=== PATIENT | male | born 1950 | race Caucasian/White ===

== ENCOUNTER 2018-08-07 10:41 | Emergency (ER) | payer MEDICARE, OTHER ==
[~2018-08-07] VITALS: Ht 180.3 cm; Wt 65.9 kg
[2018-08-07 11:24] LABS: BASOPHILS % (AUTO) 0.5 % (0-1); EOSINOPHILS # (AUTO) 0.1 X10'3 (0-0.9); EOSINOPHILS % (AUTO) 1.3 % (0-6); HEMOGLOBIN 16.4 g/dl (14.0-17.9); LYMPHOCYTES # (AUTO) 1.4 X10'3 (1.1-4.8); LYMPHOCYTES % (AUTO) 23.8 % (21-51); MEAN CORPUSCULAR HEMOGLOBIN 30.1 PG (27.0-31.0); MEAN CORPUSCULAR HGB CONC 33.4 % (33.0-36.5); MEAN CORPUSCULAR VOLUME 90.2 FL (78-98); MEAN PLATELET VOLUME 7.3 FL (7.4-10.4); MONOCYTES # (AUTO) 0.8 X10'3 (0-0.9); MONOCYTES % (AUTO) 13.5 % (2-12); NEUTROPHILS # (AUTO) 3.7 X10'3 (1.8-7.7); NEUTROPHILS % (AUTO) 60.9 % (42-75); PLATELET COUNT 268 X10'3 (140-440); RED BLOOD COUNT 5.44 X10'6 (4.70-6.10); RED CELL DISTRIBUTION WIDTH 13.6 % (11.5-14.5); WHITE BLOOD COUNT 6.1 X10'3 (4.5-11.0)
[2018-08-07 11:39] LABS: ALANINE AMINOTRANSFERASE 23 U/L (12-78); ALBUMIN 3.7 G/DL (3.4-5.0); ALKALINE PHOSPHATASE 84 IU/L (46-116); ANION GAP 12 (8-16); ASPARTATE AMINO TRANSFERASE 18 U/L (10-37); BILIRUBIN,TOTAL 0.3 MG/DL (0.1-1.0); BLOOD UREA NITROGEN 15 MG/DL (7-18); BUN/CREATININE RATIO 15.2 (5.4-32.0); CALCIUM 8.8 MG/DL (8.5-10.1); CHLORIDE 96 MMOL/L (99-107); CREATININE 0.99 MG/DL (0.60-1.10); GLUCOSE 107 MG/DL (70-104); POTASSIUM 4.1 MMOL/L (3.5-5.1); SODIUM 133 MMOL/L (135-145); TOTAL CARBON DIOXIDE 25.4 MMOL/L (24-32); TOTAL PROTEIN 7.4 G/DL (6.4-8.2); eGFR 75 ML/MIN
[2018-08-07 11:41] LABS: PARTIAL THROMBOPLASTIN TIME 30 SECONDS (22-32); PROTHROMBIN TIME 10.2 SECONDS (9.0-12.0)
[2018-08-07] MEDS ORDERED: normal saline 1000ML IV soln IVB ONE (13:00)
[2018-08-07 14:23] LABS: CLARITY,URINE CLEAR (Clear); COLOR,URINE YELLOW (Yellow); GLUCOSE, URINE NEGATIVE (Neg); KETONES,URINE TRACE mg/dl (Neg); LEUKOCYTE ESTERASE ,URINE SMALL (Neg); NITRITES, URINE NEGATIVE (Neg); OCCULT BLOOD,URINE NEGATIVE (Neg); PROTEIN,URINE NEGATIVE (Neg); UROBILINOGEN,URINE 0.2 E.U/dL (0.2-1.0)
[2018-08-07 14:26] LABS: UA COLLECTION TYPE CLN CATCH MIDSTREAM
[2018-08-07 14:30] LABS: BACTERIA,URINE FEW /HPF (Neg); SQUAMOUS EPITHELIAL CELL,UR FEW /LPF (FEW)
[2018-08-07 14:31] LABS: RBC,URINE 0-2 /HPF (0-2); WBC,URINE 0-4 /HPF (0-4)
[2018-08-07 15:16] VITALS: BP 133/74
== END 2018-08-07 15:17 | disposition home or self-care (01) ==
LOC: ER 10:42
DX: R55 Syncope and collapse (principal); R63.0 Anorexia; R61 Generalized hyperhidrosis; Z87.19 Personal history of other diseases of the digestive system
CPT/HCPCS: 36415; 71045; 80053; 81001; 82948; 84484; 85025; 85610; 85730; 87088; 93005; 99284; J7030

== ENCOUNTER 2025-06-10 16:14 | Emergency (ER) | payer MEDICARE, OTHER ==
[~2025-06-10] VITALS: Ht 180.3 cm; Wt 70.6 kg
[2025-06-10 16:31] VITALS: BP 140/89; PULSE 82; TEMP 97.8; O2SAT 95
--- NOTE | 2025-06-10 16:34 | ELECTROCARDIOGRAPH REPORT ---
[facility] Test Date: 2025-06-10 Test Time: 16:33:04 Pat Name: CRUZ EMANUEL Department: EMERGENCY ROOM Room: Gender: M Senior Technical Specialist: : [id number] Requested By: KATERINA ALEMAN Order Number: [id number] Reading MD: Dr. Manuel Goodwin Measurements Intervals [place] Rate: 78 P: 72 [place]: 155 QRS: 102 QRSD: 111 T: 58 QT: 404 QTc: 461 Interpretive Statements Sinus rhythm Right axis deviation Electronically Signed On 06-12-2025 21:43:[address] Manuel Goodwin Please click the below link to view image of tracing.
[2025-06-10 17:06] LABS: MEAN PLATELET VOLUME 6.8 FL (7.4-10.4); RED CELL DISTRIBUTION WIDTH 14.1 % (11.5-14.5)
--- NOTE | 2025-06-10 17:21 | RADIOLOGY REPORT ---
CHEST RADIOGRAPH Indication: CP Technique: DI CHEST,SINGLE VIEW Comparison: None FINDINGS: 1 The cardiac silhouette is unremarkable. The lungs demonstrate bilateral interstitial airspace opacities. The pulmonary vasculature is unremarkable. There is no pleural effusion. There is no pneumothorax. IMPRESSION: Interstitial airspace opacities which could represent sequela of pulmonary edema, atypical infection, chronic lung changes/disease.
[2025-06-10 17:27] LABS: CREATININE 0.71 MG/DL (0.60-1.10); PRO BRAIN NATRIURETIC PEPTIDE 90 PG/ML (0-450); TOTAL CARBON DIOXIDE 27.2 MMOL/L (24-32); eCRCL 90 ML/MIN; eGFR > 90 ML/MIN
[2025-06-10 18:09] LABS: LEUKOCYTE ESTERASE ,URINE NEGATIVE (Neg); NITRITES, URINE NEGATIVE (Neg); OCCULT BLOOD,URINE NEGATIVE (Neg)
[2025-06-10 18:10] LABS: UA COLLECTION TYPE NON-SPECIFIED
--- NOTE | 2025-06-10 18:52 | RADIOLOGY REPORT ---
CT CT HEAD Indication: syncope EXAM DATE: 06/10/2025 06:15 PM COMPARISON: None TECHNIQUE: CT of the head without intravenous contrast. RADIATION DOSE: CTDIvol: 54 mGy, DLP: 1152 mGy*cm FINDINGS: There is no intracranial hemorrhage. There is no extra-axial fluid, mass, mass effect or midline shift. The ventricles are midline and normal in size. Basilar cisterns are patent. There are mild periventricular and subcortical white matter chronic microvascular ischemic changes. The mastoids are well pneumatized. There is mild mucosal thickening of the bilateral maxillary sinuses. 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 Imaged portion of the orbits are unremarkable. IMPRESSION: No intracranial hemorrhage or mass effect. Mild chronic microvascular ischemic changes.
--- NOTE | 2025-06-10 19:05 | Physician Documentation ---
History of Present Illness ~ Chief Complaint: Dizziness Stated Complaint: WEAKNESS Time Seen by MD: 16:53 Primary Medical Doctor: [facility] 74-year-old male presents to the ED with a complaint of 2-3 days of intermittent dizziness. Denies any exacerbating or alleviating factors. Denies any shortness of breath short chest pain. Denies any urinary frequency. Denies any recent head trauma.. Denies any cardiac history. Day of Onset: Jun 10, 2025 Medication Reconciliation Allergies: Coded Allergies: No Known Allergies (Unverified , 09/03/10) Past Medical History Past Medical History: Hernia Past Surgical History: noncontributory Alcohol Use: None Lives In: Home Review of Systems All Other Systems at this time: Reviewed and Negative ROS As stated above in the [facility], otherwise all systems are reviewed and negative. Physical Exam Vital Signs: Temperature: 97.8, Source: Oral, Heart Rate: 82, Respiratory Rate: 16, BP: 140/89, Pulse Oximetry: 95, Weight: 70.600 Oxygen Flow Rate: 0 Physical Exam General: Alert, no apparent distress. HEENT: PERRL, EOMI, no injection, moist mucous membranes. Neck: Full range of motion. Respiratory: Lungs clear, no respiratory distress. Chest: No accessory muscle use. Cardiovascular: Regular rate and rhythm, no murmurs. Gastrointestinal: Soft, nontender, nondistended. Bowels sounds present. Extremities: Normal range of motion, no deformity. Neurologic: Oriented x4. Psychiatric: Normal mood and affect. Skin: Normal color, warm and dry. No edema, no ecchymosis. Progress Results/Orders Results/Orders Orders - PATRICK WEBER [employer]ICAL SYSTEMS EDUCATOR Ct Head (06/10/25 18:24) Completed Orders - PATRICK WEBER [employer]INICAL SYSTEMS EDUCATOR Urinalysis, Cult If Indicated (06/10/25 17:51) Ct Head (06/10/25 18:24) Vital Signs 06/10/25 06/10/25 16:31 19:33 Temp 97.8 Pulse 82 Resp 16 16 B/P (MAP) 140/89 Pulse Ox 95 O2 Flow Rate 0 Laboratory Tests Test 06/10/25 16:50 06/10/25 18:03 06/10/25 19:08 White Blood Count 9.4 Red Blood Count 5.22 Hemoglobin 16.2 Hematocrit 48.3 Mean Corpuscular Volume 92.4 Mean Corpuscular Hemoglobin 31.0 Mean Corpuscular Hemoglobin Concent 33.6 Red Cell Distribution Width 14.1 Platelet Count 350 Mean Platelet Volume 6.8 L Neutrophils (%) (Auto) 65.5 Lymphocytes (%) (Auto) 22.6 Monocytes (%) (Auto) 9.6 Eosinophils (%) (Auto) 1.9 Basophils (%) (Auto) 0.4 Neutrophils # (Auto) 6.2 Lymphocytes # (Auto) 2.1 Monocytes # (Auto) 0.9 Eosinophils # (Auto) 0.2 Basophils # (Auto) 0.0 CBC Comment Sodium Level 134 L Potassium Level 4.2 Chloride Level 100 Carbon Dioxide Level 27.2 Anion Gap 7 L Blood Urea Nitrogen 13 Creatinine 0.71 Estimated GFR/1.73 m2 > 90 BUN/Creatinine Ratio 18.3 Glucose Level 94 Calcium Level 9.0 Troponin I High Sensitivity 11 13 Pro-B-Type Natriuretic Peptide 90 Albumin 3.8 Chemistry Comments Urine Specimen Description Non-specified Urine Color Yellow Urine Clarity Clear Urine pH 7.0 Urine Specific [place] 1.010 Urine Protein Negative Urine Glucose (UA) Negative Urine Ketones Negative Urine Occult Blood Negative Urine Nitrite Negative Urine Bilirubin Negative Urine Urobilinogen 0.2 Urine Leukocyte Esterase Negative Urine Culture Indicated Not ind Volume Urine Centrifuged 10 ml Urine Comment Troponin I High Sens Percent Delta 18 Troponin I Hi Sens Absolute Change 2 Medical Decision Making Findings Patient does not present with any acute findings. His laboratory values are reassuring urinalysis reassuring in his CT showed no signs of abnormalities. At this time I would attribute his symptoms to vertigo or viral syndrome. However he does not present with any symptoms that would require further evaluation. Based on his age I did offer hospitalist admission for further evaluation potential MRI. he declined Differential Dx:Considerations: Include: anemia, CVA, dehydration, dysrhythmia, electrolyte imbalance, encephalopathy, Guillain-Severance, hypoglycemia, hypotension, hypovolemia, labyrinthitis, Meniere's disease, myasathenia gravis, myocardial infarction, pulmonary embolus, renal failure, respiratory failure, TIA, VBI, vertigo central, vertigo peripheral, vestibular neuronitis, other Departure Disposition: 01 HOME / SELF CARE / HOMELESS Impression: Primary Impression: Dizziness Discharge Instructions: Dizziness Referrals: NO PRIMARY CARE PROVIDER (PCP) Education Educated: Patient Educated regarding: diagnosis Signature Scribe Signature: f Attestation: Scribed for Patrick Weber Np by Patrick Calabrese NP . 06/10/25 22:35 PATRICK WEBER NP Jun 10, 2025 19:05
[2025-06-10 19:33] VITALS: RESP 16
== END 2025-06-10 19:41 | disposition home or self-care (01) ==
LOC: ER 16:14
DX: R42 Dizziness and giddiness (principal)
CPT/HCPCS: 36415; 70450; 71045; 80048; 81003; 83880; 84484; 85025; 93005; 99285